=== PATIENT | male | born 1940 | race Caucasian/White ===

== ENCOUNTER 2024-03-31 13:54 | Day surgery (SDC) | payer MEDICARE, BC, SELFPAY ==
[2024-03-31] VITALS (21 sets, daily range): BP systolic 127–150; BP diastolic 61–94; PULSE 56–81; RESP 11–18; TEMP 36.1–36.7; O2SAT 94–98; BMI 28.5
--- NOTE | 2024-03-31 14:55 | ED.GENADULT ---
HPI - General Adult General Date Seen: 03/31/24 Chief complaint: Abdominal Pain Stated complaint: having pain from hernia Time Seen by Provider: 03/31/24 14:02 History of Present Illness HPI narrative: Pleasant 83-year-old male with history of hypertension, , type 2 diabetes, dyslipidemia, previous right inguinal hernia (repaired many years ago by a surgeon at [facility]), abdominal aortic aneurysm (grafted), presenting to the ER today with left groin and left lower quadrant abdominal pain. He notes that about a month and half ago while he was cutting the grass he started to feel a little bit of swelling and fullness in his left groin that is been painful. It has been present off and on since then. It has been getting worse lately and has been painful for the past several days. He saw his primary care provider, at the [facility] in [facility] 2 days ago. He had an outpatient CT scan yesterday that confirmed a left inguinal hernia which contains sigmoid colon without any evidence for obstruction or strangulation. He notes that the pain is in a similar location to his previous right inguinal hernia, but what is different at this time is that he is not able to actually feel a mass or lump with his fingers and has not been able to self reduce his current hernia. This morning his hernia has become much more painful. It is now a 10/10. He is having pain in the left groin. Sometimes when the pain is severe he makes him nauseous but he is not otherwise nauseous or vomiting. No abdominal bloating. No generalized abdominal pain. No fever or chills. Urination and bowel movements have been normal. He did eat lunch in his last meal was a grilled cheese sandwich at about 11:30 a.m.. Because of the severity of his pain, he called his primary care clinic and they referred him to the ER. The he takes blood pressure pills, metformin, Protonix, fenofibrate. No anticoagulants or anti-platelet agents. He recalls that he had a right inguinal hernia repair done at [facility] many years ago. He says that there were complications of that surgery. Apparently he woke up during the anesthesia and then they had to put him back to sleep and convert open. He also apparently had a coronary event with an abnormal troponin. 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 ?). Since then he has had several other surgeries including an abdominal aortic grafting surgery done at [facility] with no complications of anesthesia. Related Data Home Medications ?Medication ?Instructions ?Recorded ?Confirmed albuterol sulfate 90 mcg/actuation 1 - 2 puff inhalation Q4H PRN 03/31/24 03/31/24 aerosol inhaler wheezing amoxicillin 875 mg tablet 875 mg PO BID 03/31/24 03/31/24 chlorthalidone 25 mg tablet 12.5 mg PO DAILY 03/31/24 03/31/24 fenofibrate nanocrystallized 145 145 mg PO DAILY 03/31/24 03/31/24 mg tablet gabapentin 300 mg capsule 300 mg PO BID 03/31/24 03/31/24 lisinopril 20 mg tablet 20 mg PO DAILY 03/31/24 03/31/24 metformin 500 mg tablet 500 mg PO QPM 03/31/24 03/31/24 pantoprazole 40 mg tablet,delayed 40 mg PO DAILY 03/31/24 03/31/24 release Allergies Allergy/AdvReac Type Severity Reaction Status Date / Time No Known Drug Allergies Allergy Verified 03/31/24 13:59 PFSH PFSH Social History Smoking Status: Never smoker How often do you have a drink containing alcohol: 4 or more times a week How many standard drinks containing alcohol do you have on a typical day: 3 or 4 How often do you have six or more drinks on one occasion: Never AUDIT-C Alcohol total score: 5 Non-prescribed substance use: other Non-prescribed substance use details: [facility] service: Yes Exam Narrative: Exam Narrative: Constitutional: Appears well-developed and well-nourished. Alert. Conversant. Standing up next to the bed because he is much more comfortable standing than sitting. When laying down he has pain in his left groin and he is able to improve it but not resolve it when he externally rotates his left hip and bends his left knee. Non toxic. HENT: Head: Atraumatic. Nose: Nose normal. Mouth/Throat: Oral mucosa is clear and moist. no trismus. Pharynx normal. Tonsils symmetric. No tonsillar enlargement, erythema, or exudate. Eyes: Conjunctivae normal. EOM normal. Pupils equal, round, and reactive to light. No scleral icterus. Neck: Normal range of motion. Neck supple. No tracheal deviation present. Cardiovascular: Normal rate, regular rhythm. No gallop. No friction rub. No murmur heard. Pulmonary/Chest: Effort normal. No stridor. No respiratory distress. No wheezes. No rales. No rhonchi . No tenderness. Abdominal: Soft. Bowel sounds normal. No distension. No mass. No tenderness. No rebound. No guarding. Bowel sounds normal. : Externally normal genitalia. Penis is retracted into the foreskin and suprapubic tissue. No penile pain. Testicles and scrotum are nontender. Patient does have mild tenderness with a ill-defined fullness in the left inguinal region. I am not able to really feel a discrete inguinal mass. When I put my finger into the inguinal canal from below I do feel some fullness suggestive of hernia there. I am not able to reduce the hernia. Musculoskeletal: RUE: Normal range of motion. No tenderness. No deformity LUE: Normal range of motion. No tenderness. No deformity RLE: Normal range of motion. No edema. No tenderness. No deformity LLE: Normal range of motion. No edema. No tenderness. No deformity Neurological: Alert and oriented to person, place, and time. Normal strength. CN II-VII intact. No sensory deficit. GCS eye subscore is 4. GCS verbal subscore is 5. GCS motor subscore is 6. Normal coordination Skin: Skin is warm and dry. No rash noted. No pallor. Normal capillary refill. Psychiatric: Normal mood. Normal affect. Const: Vital Signs, click to edit/add: Vital Signs - 24 hr 03/31/24 14:00 03/31/24 15:33 Temperature 97.5 F L 97.7 F Pulse Rate [Pulse Oximeter] 69 60 Respiratory Rate 18 16 Blood Pressure [[facility]] 132/86 127/89 Pulse Oximetry 98 95 Course Vital Signs Vital signs: Initial Vital Signs Temperature 97.5 F L 03/31/24 14:00 Temperature Source Temporal Artery Scan 03/31/24 14:00 Pulse Rate 69 03/31/24 14:00 Respiratory Rate 18 03/31/24 14:00 Blood Pressure 132/86 03/31/24 14:00 Blood Pressure Mean 101 03/31/24 14:00 Blood Pressure Position Sitting 03/31/24 14:00 Pulse Oximetry 98 03/31/24 14:00 Vital Signs Temperature 97.5 F L 03/31/24 14:00 Pulse Rate 69 03/31/24 14:00 Respiratory Rate 18 03/31/24 14:00 Blood Pressure 132/86 03/31/24 14:00 Pulse Oximetry 98 03/31/24 14:00 Temperature 97.7 F 03/31/24 15:33 Pulse Rate 60 03/31/24 15:33 Respiratory Rate 16 03/31/24 15:33 Blood Pressure 127/89 03/31/24 15:33 Pulse Oximetry 95 03/31/24 15:33 Medications Administered Medications: Discontinued Medications Generic Name Dose Route Start Last Admin Trade Name Lior PRN Reason Stop Dose Admin Hydromorphone HCl 0.5 mg 03/31/24 14:54 03/31/24 15:15 Hydromorphone 0.5 Mg/0.5 Ml Inj IVP 03/31/24 14:55 0.5 mg ONCE ONE Administration Ondansetron HCl 4 mg 03/31/24 14:54 03/31/24 15:15 Ondansetron 2 Mg/Ml Inj IVP 03/31/24 14:55 4 mg ONCE ONE Administration Medical Decision Making [facility] Narrative Medical decision making narrative: Pleasant 83-year-old gentleman presenting to the ER with severe left groin pain. He has had left groin pain for the past month and a half for so and had an outpatient CT scan done through his primary care clinic ([facility]) yesterday that confirmed a left inguinal hernia containing sigmoid colon. On imaging yesterday there is no evidence for associated complications such as strangulation, obstruction. Today he has worsening pain in left groin now rated 10/10 at home. No other diffuse abdominal pain, vomiting. Exam shows no distension or signs of bowel obstruction. On my exam he is quite tender in the left inguinal region with some fullness there suggestive of a hernia but I am not able to clearly palpate the borders of the hernia sac. I am not able to reduce his hernia. He has ongoing marked discomfort. Discussed with our on-call surgeon, Dr. Santiago. She was able to review his images taken yesterday. Based on his worsening pain and symptoms, since were not able to reduce the hernia here in the ER, she agrees that operative intervention is indicated. Patient last ate at about 11:[address] Santiago think she can take him to the OR at about 4:30 p.m.. Patient's screening labs showed normal white count, normal hemoglobin. Mildly elevated BUN, probably likely related to prerenal azotemia. Maintenance IV fluids ordered. Glucose normal. INR normal. Lactic acid normal. Screening EKG shows a first-degree AV block but no arrhythmia or heart block. No ischemia. He is not having any chest pain today or lately. Screening troponin is normal. At this point, with reasonable clinical confidence I think he is stable enough for anesthesia to repair his hernia. Clearly expeditious hernia repair is indicated based on severe and worsening symptoms. Fortunately at this point no evidence for any clear strangulation or incarceration. I do not think he needs a repeat CT scan today. Lab Data Labs: Lab Results 03/31/24 Range/Units 15:05 WBC 7.68 (4.50-11.00) K/uL RBC 3.78 L (4.30-5.90) m/uL Hgb 12.0 L (13.5-17.5) gm/dL Hct 37.6 (37.0-53.0) % MCV 100 (80-100) fL MCH 32 (26-34) pg MCHC 32 (32-36) gm/dL RDW Coeff of Jerrod 14.3 (11.5-15.5) % Plt Count 348 (140-440) K/uL Neut % (Auto) 63.7 (42.0-72.0) % Lymph % (Auto) 24.6 (20-44) % [place] % (Auto) 8.6 (0.0-11.0) % Eos % (Auto) 0.7 (0.0-7.0) % Baso % (Auto) 0.3 (0.0-3.0) % Neut # (Auto) 4.90 (1.7-7.0) K/uL Lymph # (Auto) 1.89 (0.90-2.90) K/uL [place] # (Auto) 0.70 (0.00-0.90) K/UL Eos # (Auto) 0.05 (0.00-0.50) K/uL Baso # (Auto) 0.02 (0.00-0.30) K/uL Abs Immat Gran (auto) 0.16 (0.00-0.30) K/uL Imm/Tot Granulo (auto) 2.1 % INR 0.91 (0.91-1.10) Sodium 136 (135-149) mmol/L Potassium 4.0 (3.6-5.1) mmol/L Chloride 99 (96-114) mmol/L Carbon Dioxide 29 (20-32) mmol/L Anion Gap 8 (7-15) mEq/L BUN 33 H (7-30) mg/dL Creatinine 1.2 (0.5-1.5) mg/dL Estimated Creat Clear 43.61 Estimated GFR 60 ml/min Glucose 107 (60-115) mg/dL Lactate 1.0 (0.5-1.9) mmol/L Calcium 10.0 (8.4-10.6) mg/dL Troponin I 0.01 (0.01-0.04) ng/mL Discharge Plan Discharge Clinical Impression: Hernia, inguinal, left Patient Disposition: XFER to OR Instructions: General Anesthesia (DC), Inguinal Hernia Repair (DC), Post-Operative Instructions: Hernia Repair Follow Up/Referrals: Elaine Santiago MD [Primary Care Provider] -
[2024-03-31 15:15] LABS: Basophils Absolute Auto 0.02 K/uL (0.00-0.30); Basophils Percent Auto 0.3 % (0.0-3.0); Eosinophils Absolute Auto 0.05 K/uL (0.00-0.50); Eosinophils Percent Auto 0.7 % (0.0-7.0); Hematocrit 37.6 % (37.0-53.0); Immature Granulocytes Abs Auto 0.16 K/uL (0.00-0.30); Immature Granulocytes Pct Auto 2.1 %; Lymphocytes Absolute Auto 1.89 K/uL (0.90-2.90); Lymphocytes Percent Auto 24.6 % (20-44); Mean Corpuscular HGB Conc 32 gm/dL (32-36); Mean Corpuscular Hemoglobin 32 pg (26-34); Mean Corpuscular Volume 100 fL (80-100); Monocytes Percent Auto 8.6 % (0.0-11.0); Neutrophils Percent Auto 63.7 % (42.0-72.0); Platelet Count* 348 K/uL (140-440); RDW Coefficient of Variation % 14.3 % (11.5-15.5); Red Blood Count 3.78 m/uL (4.30-5.90); Slide Review Reflex No; White Blood Count* 7.68 K/uL (4.50-11.00)
[2024-03-31] MEDS: HYDROmorphone 0.5 mg/0.5 ml inj IVP (15:15)
[2024-03-31] MEDS: ONDANSETRON 2 MG/ML inj 4 MG IVP (15:15)
[2024-03-31 15:29] LABS: Chloride* 99 mmol/L (96-114)
[2024-03-31 15:30] LABS: Sodium* 136 mmol/L (135-149)
[2024-03-31 15:32] LABS: Creatinine* 1.2 mg/dL (0.5-1.5); Est. Creatinine Clearance* 43.61; Estimated Glomerular Filt Rate 60 ml/min; INR 0.91 (0.91-1.10); Prothrombin Time 12.7 Seconds
[2024-03-31 15:33] LABS: Anion Gap 8 mEq/L (7-15); Blood Urea Nitrogen* 33 mg/dL (7-30); Carbon Dioxide* 29 mmol/L (20-32); Glucose* 107 mg/dL (60-115)
[2024-03-31 15:45] LABS: Troponin I* 0.01 ng/mL (0.01-0.04)
--- NOTE | 2024-03-31 16:39 | PM.GSCN ---
History of Present Illness Consult details Date Seen: 03/31/24 Consult date: 03/31/24 Narrative: The patient is an 83-year-old male who presented to the emergency department today with 10/10 left groin pain in the setting of recently diagnosed left inguinal hernia containing sigmoid colon. The patient states he has noted left groin discomfort for the last 1-2 months. He has been recently worse. He saw his primary care provider last week. A CT scan was ordered. This was done yesterday. It showed a fat containing right inguinal hernia as well as a left inguinal hernia containing sigmoid colon. Referral was made to surgery. However, today the pain became much worse. This morning he states it was so severe he could not sit up. He did not have nausea. He ate breakfast this morning and then had soup and a sandwich around 11:30 a.m.. He had pain it is around 1:30 p.m.. He has not eaten since then. He had been having normal bowel movements and his last bowel movement was yesterday. He has a history of a right inguinal hernia repair 24 years ago. No other abdominal surgeries. [facility] Medical History (Updated 03/31/24 @ 16:56 by Elaine Santiago MD) Pre-diabetes ?R73.03 - Prediabetes (ICD-10) Diastolic dysfunction ?I51.89 - Other ill-defined heart diseases (ICD-10) CKD (chronic kidney disease) stage 3, GFR 30-59 ml/min ?N18.30 - Chronic kidney disease, stage 3 unspecified (ICD-10) Carotid artery disease ?I77.9 - Disorder of arteries and arterioles, unspecified (ICD-10) Acid reflux ?K21.9 - Gastro-esophageal reflux disease without esophagitis (ICD-10) Hyperlipidemia ?E78.5 - Hyperlipidemia, unspecified (ICD-10) Hypertension ?I10 - Essential (primary) hypertension (ICD-10) Surgical History (Updated 03/31/24 @ 16:56 by Elaine Santiago MD) S/P cataract extraction ?Z98.49 - Cataract extraction status, unspecified eye (ICD-10) H/O right inguinal hernia repair ?Z98.890 - Other specified postprocedural states (ICD-10) ?Z87.19 - Personal history of other diseases of the digestive system (ICD-10) Status post endovascular aneurysm repair (EVAR) ?Z98.890 - Other specified postprocedural states (ICD-10) ?Z86.79 - Personal history of other diseases of the circulatory system (ICD-10) Social History Narrative: 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 He lives with his in the [facility]. He does not smoke but he does drink 4 alcoholic beverages per day. Denies ever having history of alcohol withdrawal. Smoking Status: Never smoker How often do you have a drink containing alcohol: 4 or more times a week How many standard drinks containing alcohol do you have on a typical day: 3 or 4 How often do you have six or more drinks on one occasion: Never AUDIT-C Alcohol total score: 5 Non-prescribed substance use: other Non-prescribed substance use details: [facility] service: Yes Meds Home Medications and Allergies Home Medications ?Medication ?Instructions ?Recorded ?Confirmed ?Type albuterol sulfate 90 mcg/actuation 1 - 2 puff inhalation Q4H PRN 03/31/24 03/31/24 History aerosol inhaler wheezing amoxicillin 875 mg tablet 875 mg PO BID 03/31/24 03/31/24 History chlorthalidone 25 mg tablet 12.5 mg PO DAILY 03/31/24 03/31/24 History fenofibrate nanocrystallized 145 145 mg PO DAILY 03/31/24 03/31/24 History mg tablet gabapentin 300 mg capsule 300 mg PO BID 03/31/24 03/31/24 History lisinopril 20 mg tablet 20 mg PO DAILY 03/31/24 03/31/24 History metformin 500 mg tablet 500 mg PO QPM 03/31/24 03/31/24 History pantoprazole 40 mg tablet,delayed 40 mg PO DAILY 03/31/24 03/31/24 History release Allergies Allergy/AdvReac Type Severity Reaction Status Date / Time No Known Drug Allergies Allergy Verified 03/31/24 13:59 Exam Narrative: Exam Narrative: General appearance: Alert, cooperative, and in no distress Eyes: PERRLA, eye lids clear, and sclera white HENT Head: Normocephalic Ears: External ears normal Pulmonary: Breathing nonlabored on room air Cardiovascular Heart: Regular rate Extremities: warm and well perfused Gastrointestinal Abdominal: Protuberant. Right inguinal scar noted. : Patient has a tender bulge in the left inguinal area. Left testicle is also tender. Nontender bulge in the right groin. Musculoskeletal: Extremities: Upper: Both upper extremities have normal joint range of motion and intact strength. Lower: Both lower extremities have normal joint range of motion and intact strength. Skin: Normal skin color, texture, and turgor. Neurologic: No focal deficits Psychiatric: Alert, oriented, cooperative, normal affect. Const: Vital Signs, click to edit/add: Vital Signs - 24 hr 03/31/24 14:00 03/31/24 15:30 03/31/24 15:33 Temperature 97.5 F L 97.7 F 97.7 F Pulse Rate 60 Pulse Rate [Pulse Oximeter] 69 60 Respiratory Rate 18 16 16 Blood Pressure 127/89 Blood Pressure [Ri ght Upper Arm] 132/86 127/89 Pulse Oximetry 98 95 95 03/31/24 16:29 Temperature 97.4 F L Pulse Rate 62 Pulse Rate [Pulse Oximeter] Respiratory Rate 16 Blood Pressure 135/83 Blood Pressure [Ri ght Upper Arm] Pulse Oximetry 95 Results Labs Labs: Abnormal lab results 03/31/24 Range/Units 15:05 RBC 3.78 L (4.30-5.90) m/uL Hgb 12.0 L (13.5-17.5) gm/dL BUN 33 H (7-30) mg/dL Diabetes panel 03/31/24 Range/Units 15:05 Sodium 136 (135-149) mmol/L Potassium 4.0 (3.6-5.1) mmol/L Chloride 99 (96-114) mmol/L Carbon Dioxide 29 (20-32) mmol/L BUN 33 H (7-30) mg/dL Creatinine 1.2 (0.5-1.5) mg/dL Glucose 107 (60-115) mg/dL Calcium 10.0 (8.4-10.6) mg/dL Calcium panel 03/31/24 Range/Units 15:05 Calcium 10.0 (8.4-10.6) mg/dL Pituitary panel 03/31/24 Range/Units 15:05 Sodium 136 (135-149) mmol/L Potassium 4.0 (3.6-5.1) mmol/L Chloride 99 (96-114) mmol/L Carbon Dioxide 29 (20-32) mmol/L BUN 33 H (7-30) mg/dL Creatinine 1.2 (0.5-1.5) mg/dL Glucose 107 (60-115) mg/dL Calcium 10.0 (8.4-10.6) mg/dL Adrenal panel 03/31/24 Range/Units 15:05 Sodium 136 (135-149) mmol/L Potassium 4.0 (3.6-5.1) mmol/L Chloride 99 (96-114) mmol/L Carbon Dioxide 29 (20-32) mmol/L BUN 33 H (7-30) mg/dL Creatinine 1.2 (0.5-1.5) mg/dL Glucose 107 (60-115) mg/dL Calcium 10.0 (8.4-10.6) mg/dL All other labs normal. Imaging Abdomen CT scan report/results: report reviewed and image reviewed Additional studies: CT scan of the abdomen pelvis from 03/30 at [facility]: IMPRESSION: 1. Left inguinal hernia containing sigmoid colon without any obstruction or strangulation. 2. Fat containing right inguinal hernia. 3. Diverticulosis sigmoid colon without any CT evidence of diverticulitis or abscess. 4. Gallstones. Please note that all CT scans at this facility use dose modulation, iterative reconstruction, and/or weight-based dosing when appropriate to reduce radiation dose to as low as reasonably achievable. Dictated by Anibal Briggs MD @ Mar 30 2024 10:05AM Progress Note:A&P Assessment and plan (1) Hernia, inguinal, left: Status: Acute Plan The patient is an 83-year-old male with an incarcerated left inguinal hernia. Given his 10/10 abdominal pain and the known presence of sigmoid colon, there is some concern for bowel compromise. Fortunately white blood cell count is within normal limits however. I do recommend urgent repair. I discussed with him and his that we will plan on open inguinal hernia repair. I will examine the bowel and if there is any concern, he will need a laparotomy and possible bowel resection. It is also possible that he could potentially need a temporary diverting colostomy as well. We discussed the risks of the procedure, however again given his significant pain and that the hernia is incarcerated I do recommend that we proceed to the OR to evaluate for bowel compromise. He signed informed consent and agreed to proceed.
[2024-03-31] MEDS: LACTATED RINGERS 1000 ML 1,000 ML 75 ML IV (16:42)
[2024-03-31] MEDS: PIPERACILLIN/TAZOBACTAM 3.375 GM INJ IVPB (17:03)
--- NOTE | 2024-03-31 17:54 | SUR.OPER ---
updated spouse via phone call
[2024-03-31] MEDS: BUPIVACAINE 0.5% 30 ML INJECTION (19:05)
--- NOTE | 2024-03-31 19:11 | PM.GSPRC ---
Operative Note Date of procedure: 03/31/24 Pre-op diagnosis: Incarcerated left inguinal hernia Post-op diagnosis: Same Type of Procedure: Open repair left inguinal hernia with mesh Indications: The patient is an 83-year-old male who noted a groin bulge in the last few months. He underwent workup which showed a left inguinal hernia containing colon. He developed acute severe groin pain today and presented to the emergency department. His hernia was found to be incarcerated. I recommended emergent repair given his symptoms. Procedure Description: After discussing the risks and benefits of the procedure, the patient signed informed consent.? The operative site was marked and the patient was brought to the operating room and placed on the operating table in supine position.? Care was taken to pad the patient's pressure points.?? The patient was then intubated by anesthesia.?? The operative site was then prepped and draped in the usual sterile fashion.? A time-out was then performed. An oblique incision was made over the palpable hernia in the left groin. Dissection was carried down into the subcutaneous tissue using cautery until the external oblique fascia was encountered. The external ring was identified and incised using cautery, just enough to relieve the hernia slightly so that I was able to dissected free from the surrounding tissue. I was able to dissect around hernia and the cord structures using blunt dissection with my finger over the pubic bone. This was then looped with a Josseline drain. I then turned my attention back to the external oblique fascia. I opened this up slightly farther past the internal ring. The ilioinguinal nerve was not identified during this dissection as the large hernia and preperitoneal fat filled the inguinal canal. I continued to free the hernia from the inside of the external oblique fascia. The hernia was again very large and initially appeared to extend down to the testicle, however after carefully dissecting out the cremaster fibers, the patient was found to have simply a very fatty spermatic cord. I turned my attention more proximal then to dissect the hernia free from the spermatic cord. Again the hernia was very large and it was difficult to delineate a distinct sac. There was a large amount of fat which had herniated as well. Eventually I was able to identify the hernia sac and incised this carefully. The sigmoid colon was visualized and did not appear to be ischemic. There was no evidence of diverticulitis. The sigmoid colon and its mesentery actually made up part of the hernia sac, which is why the identification had been difficult initially. The colon and mesentery were then reduced into the abdomen. The transversalis fascia was reapproximated with a running 2 0 Vicryl to close down the large internal ring and prevent the contents from herniating during the repair. Once this was done, I was then able to identify the landmarks for mesh placement, having to divide a small amount of cremaster muscle to ensure the mesh would lay flat. There was no direct hernia noted. A piece of polypropylene mesh was obtained. This was secured to the pubic tubercle using to 0 Prolene on a double-armed suture. The Prolene was run along the inguinal ligament inferiorly and along the transversalis fascia superiorly, securing the tails around the cord and re-creating the internal ring. The ring was just large enough to permit my fingertip. The wound was examined for hemostasis which was found to be adequate. I again examined the inguinal canal and did not find evidence of the ileo inguinal nerve The external oblique fascia was then reapproximated with absorbable suture. Local anesthetic was injected into the fascia and subcutaneous tissue around the wound. The wound was then closed in layers including River's fascia and the dermis with absorbable suture. The skin was then closed with a running subcuticular suture. Sterile dressings were applied. The scrotum was examined to ensure both testicles were located within. Instrument, sponge, and needle counts were correct at the end of the case. The patient was woken and taken to the PACU in stable condition. The patient tolerated the procedure well. Findings: Large indirect left inguinal hernia containing sigmoid colon, with the colon making up the inferior aspect of the hernia sac. Anesthesia: GETA Surgeon: Elaine Santiago MD Estimated blood loss (mL): 25 Condition: stable Disposition: PACU
--- NOTE | 2024-03-31 20:00 | SUR.PHASEI ---
patient met pacu d/c criteria
--- NOTE | 2024-03-31 20:01 | W.ANESCHARGE ---
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
[2024-03-31] MEDS: GABAPENTIN 300 MG CAPSULE PO (21:10)
[2024-04-01 00:01] VITALS: BP 135/73; PULSE 71; RESP 16; TEMP 36.2; O2SAT 95
[2024-04-01 01:00] VITALS: BP 137/86; PULSE 61; RESP 16; O2SAT 95
[2024-04-01 02:00] VITALS: BP 133/78; PULSE 64; RESP 16; TEMP 36.1; O2SAT 95
--- NOTE | 2024-04-01 06:15 | PC.NURSE ---
Arrived to floor at 2200. A&O pleasant and cooperative. VSS. Denies pain. Dressing c/d/i. Intermittent ice to site. Up w/ SBA. Ambulated in room multiple times throughout shift. Pt is only able to void around 100cc at a time. He denies any pain, pressure or urge to void. Bladder scanned this morning for 300cc. Tolerating diet. Pt did refuse blood sugar check this past evening.?
[2024-04-01 07:00] VITALS: BP 122/75; PULSE 61; PULSE 74; RESP 16; TEMP 36.6; O2SAT 93
[2024-04-01] MEDS: HYDROCODONE-ACETAMIN 5-325 MG 1 TAB PO ×2 (07:37→12:00)
[2024-04-01] MEDS: OMEPRAZOLE 20 MG CAPSULE DR 40 MG PO (07:37)
[2024-04-01] MEDS: CHLORTHALIDONE 25 MG TABLET 12.5 MG PO (09:23)
[2024-04-01] MEDS: lisinopriL 20 MG TABLET PO (09:23)
[2024-04-01] MEDS: GABAPENTIN 300 MG CAPSULE PO (09:23)
--- NOTE | 2024-04-01 10:14 | PM.DS1 ---
DS: Providers Provider Date Seen: 04/01/24 Primary care physician: Elaine Santiago MD Attending Physician on discharge: Elaine Santiago MD DS: Diagnosis Discharge Diagnosis (1) S/P left inguinal hernia repair: Status: Acute DS: Summary Hospital Course Hospital Course: The patient is an 83-year-old male who developed a left inguinal hernia. On 03/31/2024 this became acutely more painful and he presented to the emergency department. His hernia was found to be incarcerated. Because it was known to contain sigmoid colon I recommended emergent repair. Open left inguinal hernia repair was performed. The sigmoid colon appeared viable. The patient was admitted overnight and on postop day 1 he was voiding without difficulty, tolerating a diet and ambulating. He was deemed safe for discharge home. Time Spent with Patient Time attestation: Total time spent providing and/or coordinating discharge services: Exam Narrative: Exam Narrative: General: No acute distress CV: Regular rate and rhythm Respiratory: Clear to auscultation bilaterally Abdomen: Soft, nontender other than around the left groin incision. Left groin dressing in place. Clean and dry. Const: Vital Signs, click to edit/add: Vital Signs - 24 hr 03/31/24 14:00 03/31/24 15:30 03/31/24 15:33 Temperature 97.5 F L 97.7 F 97.7 F Pulse Rate 60 Pulse Rate [Pulse Oximeter] 69 60 Respiratory Rate 18 16 16 Blood Pressure 127/89 Blood Pressure [Ri ght Upper Arm] 132/86 127/89 Pulse Oximetry 98 95 95 Oxygen Delivery Me thod 03/31/24 16:29 03/31/24 19:20 03/31/24 19:25 Temperature 97.4 F L 98.0 F Pulse Rate 62 81 74 Pulse Rate [Pulse Oximeter] Respiratory Rate 16 11 L 14 Blood Pressure 135/83 139/94 H 135/61 Blood Pressure [Ri ght Upper Arm] Pulse Oximetry 95 94 96 Oxygen Delivery Me thod Room Air 03/31/24 19:30 03/31/24 19:35 03/31/24 19:40 Temperature Pulse Rate 71 65 64 Pulse Rate [Pulse Oximeter] Respiratory Rate 16 16 14 Blood Pressure 132/93 H 139/76 138/94 H Blood Pressure [Ri ght Upper Arm] Pulse Oximetry 97 97 98 Oxygen Delivery Me thod 03/31/24 19:45 03/31/24 20:00 03/31/24 20:00 Temperature 97.8 F 97.5 F L 97.5 F L Pulse Rate 63 66 66 Pulse Rate [Pulse Oximeter] Respiratory Rate 16 18 18 Blood Pressure 136/64 150/80 H 150/80 H Blood Pressure [Ri ght Upper Arm] Pulse Oximetry 96 95 95 Oxygen Delivery Me thod Room Air Room Air 03/31/24 20:18 03/31/24 20:23 03/31/24 20:30 Temperature 97.5 F L Pulse Rate 57 L 66 56 L Pulse Rate [Pulse Oximeter] Respiratory Rate 18 18 18 Blood Pressure 142/78 H 150/80 H 136/91 H Blood Pressure [Ri ght Upper Arm] Pulse Oximetry 95 95 95 Oxygen Delivery Me thod Room Air Room Air Room Air 03/31/24 20:45 03/31/24 21:00 03/31/24 21:31 Temperature 97.1 F L Pulse Rate 57 L 58 L 65 Pulse Rate [Pulse Oximeter] Respiratory Rate 18 18 18 Blood Pressure 147/68 H 136/83 146/85 H Blood Pressure [Ri ght Upper Arm] Pulse Oximetry 97 98 96 Oxygen Delivery Me thod Room Air Room Air Room Air 03/31/24 22:00 03/31/24 22:45 03/31/24 23:00 Temperature 97.0 F L 97.1 F L Pulse Rate 66 67 66 Pulse Rate [Pulse Oximeter] Respiratory Rate 18 18 Blood Pressure 141/75 H 146/88 H Blood Pressure [Ri ght Upper Arm] Pulse Oximetry 95 95 Oxygen Delivery Me thod Room Air Room Air 03/31/24 23:18 04/01/24 00:01 04/01/24 01:00 Temperature 97.1 F L Pulse Rate 71 61 Pulse Rate [Pulse Oximeter] Respiratory Rate 18 16 16 Blood Pressure 135/73 137/86 Blood Pressure [Ri ght Upper Arm] Pulse Oximetry 95 95 95 Oxygen Delivery Me thod Room Air Room Air Room Air 04/01/24 02:00 Temperature 96.9 F L Pulse Rate 64 Pulse Rate [Pulse Oximeter] Respiratory Rate 16 Blood Pressure 133/78 Blood Pressure [Ri ght Upper Arm] Pulse Oximetry 95 Oxygen Delivery Me thod Room Air DS: Data Data Completed and Pending Labs on day of discharge: Labs from last 24 hours 08/27/24 15:05 WBC 7.68 RBC 3.78 L Hgb 12.0 L Hct 37.6 MCV 100 MCH 32 MCHC 32 RDW Coeff of Jerrod 14.3 Plt Count 348 Neut % (Auto) 63.7 Lymph % (Auto) 24.6 [place] % (Auto) 8.6 Eos % (Auto) 0.7 Baso % (Auto) 0.3 Neut # (Auto) 4.90 Lymph # (Auto) 1.89 [place] # (Auto) 0.70 Eos # (Auto) 0.05 Baso # (Auto) 0.02 Abs Immat Gran (auto) 0.16 Imm/Tot Granulo (auto) 2.1 INR 0.91 Sodium 136 Potassium 4.0 Chloride 99 Carbon Dioxide 29 Anion Gap 8 BUN 33 H Creatinine 1.2 Estimated Creat Clear 43.61 Estimated GFR 60 Glucose 107 Lactate 1.0 Calcium 10.0 Troponin I 0.01 Discharge Plan Discharge Disposition: Home w/ Parent or Adult Discharging Surgeon: Elaine Santiago Follow-Up Appointment: 2 weeks [facility] Prescriptions: New hydrocodone-acetaminophen 5-325 mg Tablet 1 - 2 tab PO Q6H PRN (Reason: Pain) Qty: 20 0RF Continued metformin 500 mg tablet 500 mg PO QPM lisinopril 20 mg tablet 20 mg PO DAILY chlorthalidone 25 mg tablet 12.5 mg PO DAILY amoxicillin 875 mg tablet 875 mg PO BID pantoprazole 40 mg tablet,delayed release (DR/EC) 40 mg PO DAILY gabapentin 300 mg capsule 300 mg PO BID albuterol sulfate 90 mcg/actuation HFA aerosol inhaler 1 - 2 puff INHALATION Q4H PRN (Reason: wheezing) fenofibrate nanocrystallized 145 mg tablet 145 mg PO DAILY Activity Level: Activity as Tolerated and No strenuous activity Activity Detail: No lifting more than 20 lb for 4 weeks Discharge Diet: Diabetic Patient Instructions: General Anesthesia (DC), Inguinal Hernia Repair (DC), Post-Operative Instructions: Hernia Repair Additional Instructions: Wound care: Your sutures are under the skin and will dissolve over time. Leave steri strips (white bandages) over incisions until they fall off (or remove after 7 days). OK to shower tomorrow but avoid bathing, soaking or swimming for 2 weeks. Pat the incisions dry. No need to wash or scrub the area. Apply ice to the area as needed for swelling. It is also OK to use a heating pad if this provides more comfort to you. Pain control: You were prescribed a pain medication. This medication contains acetaminophen (Tylenol). If you are taking your prescribed pain pills 4 times daily, do not take additional acetaminophen. As your pain improves, you can try taking acetaminophen instead of the prescribed pain pill. Take an [id number] stool softener while you are taking prescribed pain medications to help alleviate constipation. I recommend Senna and/or Colace. Take as directed on package. If you have not had a bowel movement in 3 days, try taking Miralax as directed on the package. All of these are available over the counter. Follow-up Follow up with Dr. Santiago in 2-3 weeks Please call if you are experiencing severe pain, nausea, vomiting, difficulty urinating, fever or have not had bowel movement in 4 days after surgery. Follow-up: Elaine Santiago MD [Primary Care Provider] - Discharge Orders: Discharge Order (Routine); Ordered 04/01/24 Ordered By: Elaine Santiago
--- NOTE | 2024-04-01 12:57 | PC.NURSE ---
Pt discharged @ 1221 via wheelchair. Pt was accompanied with and discharged back to home. Discharge papers and belongings form signed.
== END 2024-04-01 12:21 | disposition home or self-care (01) ==
LOC: ED 16:19 → OR 16:47 → MEDSURG 20:09
PROVIDERS: Emergency Provider Emergency Medicine; PCP Surgery; Visit Provider Surgery
PROC: (CPT 49507; principal; 2024-03-31 16:30)
DX: K40.30 Unilateral inguinal hernia, with obstruction, without gangrene, not specified as recurrent (principal); R10.32 Left lower quadrant pain; I44.0 Atrioventricular block, first degree; I13.0 Hypertensive heart and chronic kidney disease with heart failure and stage 1 through stage 4 chronic kidney disease, or unspecified chronic kidney disease; I50.30 Unspecified diastolic (congestive) heart failure; N18.30 Chronic kidney disease, stage 3 unspecified; E11.22 Type 2 diabetes mellitus with diabetic chronic kidney disease; Z79.84 Long term (current) use of oral hypoglycemic drugs; E78.5 Hyperlipidemia, unspecified; I71.40 Abdominal aortic aneurysm, without rupture, unspecified
CPT/HCPCS: 49507; 00830; 36415; 51798; 80048; 83605; 84484; 85025; 85610; 99100; 99283; 99285; G0378; A9270; C1781; J0330; J0665; J1100; J1170; J1885; J2405; J2543; J2704; J2710; J3010; J7120